=== PATIENT | male | born 1940 | race Caucasian/White ===

== ENCOUNTER → 2016-12-10 09:13 | Outpatient (CLI) | payer MEDICARE, OTHER ==
[2013-08-02 18:16] VITALS: BMI 27.5
[~2016-12-10 09:13] MED LIST: ADVAIR 250/501 DISK INH; FLOMAX0.4 MG PO; PLAVIX75 MG PO; PRAVACHOL40 MG PO; PROVENTIL HFA6.7 GM
[2016-12-10 09:46] LABS: BASOPHILS 0.4 % (0.0-2.0); EOSINOPHILS 3.6 % (0-7); HEMATOCRIT 42.8 % (42.0-54.0); HEMOGLOBIN 14.4 g/dL (13.5-17.5); IMMATURE GRANULOCYTES 0.3 % (0-5); LYMPHOCYTES 22.2 % (15-50); MCH 29.3 pg (26.0-34.0); MCHC 33.6 g/dL (31.0-37.0); MEAN PLATELET VOLUME 9.5 fL (7.4-10.4); MONOCYTES 7.2 % (2-11); NEUTROPHILS 66.3 % (40-80); PLATELET COUNT 242 10x3/uL (130-400); RBC 4.92 10x6/uL (4.20-6.10); RDW 13.4 % (11.5-14.5); WBC 7.4 10x3/uL (4.8-10.8)
[2016-12-10 10:23] LABS: ALBUMIN 3.9 g/dL (3.4-5.0); ALKALINE PHOSPHATASE 86 U/L (46-116); ALT (SGPT) 35 U/L (10-68); CALC OSMOLALITY 281 mosm/kg (275-300); CALCIUM 8.4 mg/dL (8.5-10.1); CARBON DIOXIDE 27.3 mmol/L (21.0-32.0); CHLORIDE - SERUM 102 mmol/L (98-107); CHOL - HDL RATIO 3.4 ratio (2.3-4.9); CHOLESTEROL, TOTAL 137 mg/dL (0-200); GLUCOSE 114 mg/dL (74-106); HDL CHOLESTEROL 40 mg/dL (32-96); LDL CHOLESTEROL 78 mg/dL (0-100); POTASSIUM - SERUM 3.7 mmol/L (3.5-5.1); PROTEIN - SERUM 7.1 g/dL (6.4-8.2); SODIUM 139 mmol/L (136-145); THYROID STIMULATING HORMONE 1.39 uIU/mL (0.36-3.74); TRIGLYCERIDE 95 mg/dL (30-200); UREA NITROGEN 20 mg/dL (7-18); eGFR NON AFRICAN AMERICAN 77 mL/min (90-120)
[2016-12-10 10:26] LABS: SCREENING PSA (YEARLY) 0.89 ng/mL (0.00-4.00)
== END | disposition home or self-care (01) ==
LOC: D.LAB 09:13
PROVIDERS: Family Medicine
DX: I25.10 Atherosclerotic heart disease of native coronary artery without angina pectoris (principal); Z12.5 Encounter for screening for malignant neoplasm of prostate; R52 Pain, unspecified; J44.9 Chronic obstructive pulmonary disease, unspecified; Z00.00 Encounter for general adult medical examination without abnormal findings

== ENCOUNTER → 2017-03-17 08:20 | Outpatient (CLI) | payer MEDICARE, OTHER ==
[2013-08-02 18:16] VITALS: BMI 27.5
== END | disposition home or self-care (01) ==
LOC: D.RAD 08:00
DX: R05 Cough (principal); J43.9 Emphysema, unspecified; J18.9 Pneumonia, unspecified organism

== ENCOUNTER → 2017-03-26 12:55 | Outpatient (CLI) | payer MEDICARE, OTHER ==
[2013-08-02 18:16] VITALS: BMI 27.5
== END | disposition home or self-care (01) ==
LOC: CANPRECLI → D.LABREF 12:55
DX: J98.11 Atelectasis (principal)

== ENCOUNTER → 2017-03-26 19:59 | Outpatient (CLI) | payer MEDICARE, OTHER ==
[2013-08-02 18:16] VITALS: BMI 27.5
[2017-03-28 08:16] LABS: IMMUNOGLOBULIN E 110 IU/mL (0-100)
[2017-03-30 11:12] LABS: IMMUNOGLOBULIN A 154 mg/dL (61-437); IMMUNOGLOBULIN G 1265 mg/dL (700-1600); IMMUNOGLOBULIN M 206 mg/dL (15-143)
== END | disposition home or self-care (01) ==
LOC: D.LABREF 19:59
PROVIDERS: Internal Medicine Pulmonary Disease
DX: J98.11 Atelectasis (principal)

== ENCOUNTER → 2017-04-17 08:19 | Outpatient (CLI) | payer MEDICARE, OTHER ==
[2013-08-02 18:16] VITALS: BMI 27.5
== END | disposition home or self-care (01) ==
LOC: D.RT 08:19
DX: R04.2 Hemoptysis (principal)

== ENCOUNTER → 2017-11-02 14:07 | Outpatient (CLI) | payer MEDICARE, OTHER ==
[2013-08-02 18:16] VITALS: BMI 27.5
== END | disposition home or self-care (01) ==
LOC: D.CT 14:07
DX: R91.8 Other nonspecific abnormal finding of lung field (principal)

== ENCOUNTER → 2018-03-02 09:02 | Outpatient (CLI) | payer MEDICARE, OTHER ==
[2013-08-02 18:16] VITALS: BMI 27.5
[2018-03-02 09:40] LABS: BASOPHILS 0.3 % (0-2); EOSINOPHILS 1.6 % (0-7); HEMATOCRIT 44.1 % (42.0-54.0); HEMOGLOBIN 15.2 g/dL (13.5-17.5); IMMATURE GRANULOCYTES 0.2 % (0-5); LYMPHOCYTES 16.2 % (15-50); MCHC 34.5 g/dL (31.0-37.0); MCV 87.2 fL (80.0-100.0); MEAN PLATELET VOLUME 9.4 fL (7.4-10.4); MONOCYTES 7.2 % (2-11); NEUTROPHILS 74.5 % (40-80); PLATELET COUNT 213 10x3/uL (130-400); RBC 5.06 10x6/uL (4.20-6.10); RDW 13.2 % (11.5-14.5); WBC 9.4 10x3/uL (4.8-10.8)
[2018-03-02 10:19] LABS: ALBUMIN 3.9 g/dL (3.4-5.0); ANION GAP 11.9 mmol/L (8-16); BILIRUBIN - TOTAL 0.42 mg/dL (0.2-1.3); C-REACTIVE PROTEIN 1.7 mg/dL (0.0-0.9); CALCIUM 8.7 mg/dL (8.5-10.1); CARBON DIOXIDE 27.9 mmol/L (21.0-32.0); CHOL - HDL RATIO 4.2 ratio (2.3-4.9); CREATININE - SERUM 1.1 mg/dL (0.6-1.3); LDL-HDL RATIO 2.3 ratio (1.5-3.5); MAGNESIUM - SERUM 1.9 mg/dL (1.8-2.4); POTASSIUM - SERUM 3.8 mmol/L (3.5-5.1); PROTEIN - SERUM 7.8 g/dL (6.4-8.2); THYROID STIMULATING HORMONE 1.74 uIU/mL (0.36-3.74)
[2018-03-02 10:45] LABS: ERYTHROCYTE SEDIMENTATION RATE 5 mm/hr (0-20)
== END | disposition home or self-care (01) ==
LOC: D.LAB 09:02
PROVIDERS: Family Medicine
DX: E11.9 Type 2 diabetes mellitus without complications (principal); I25.10 Atherosclerotic heart disease of native coronary artery without angina pectoris; G62.9 Polyneuropathy, unspecified; N40.0 Benign prostatic hyperplasia without lower urinary tract symptoms; R25.2 Cramp and spasm; I10 Essential (primary) hypertension; J44.9 Chronic obstructive pulmonary disease, unspecified; K21.9 Gastro-esophageal reflux disease without esophagitis

== ENCOUNTER → 2018-05-31 13:26 | Outpatient (CLI) | payer MEDICARE, OTHER ==
[2013-08-02 18:16] VITALS: BMI 27.5
== END | disposition home or self-care (01) ==
LOC: D.CT 13:26
DX: R91.8 Other nonspecific abnormal finding of lung field (principal)

== ENCOUNTER → 2018-12-07 09:35 | Outpatient (CLI) | payer MEDICARE, OTHER ==
[2013-08-02 18:16] VITALS: BMI 27.5
== END | disposition home or self-care (01) ==
LOC: D.CT 09:35
DX: R91.8 Other nonspecific abnormal finding of lung field (principal)

== ENCOUNTER → 2019-03-23 12:16 | Outpatient (CLI) | payer MEDICARE, OTHER ==
[2013-08-02 18:16] VITALS: BMI 27.5
[2019-03-23 13:13] LABS: HEMATOCRIT 45.1 % (42.0-54.0); HEMOGLOBIN 15.8 g/dL (13.5-17.5); MCH 30.2 pg (26.0-34.0); MCV 86.2 fL (80.0-100.0); MEAN PLATELET VOLUME 9.8 fL (7.4-10.4); PLATELET COUNT 232 10x3/uL (130-400); RBC 5.23 10x6/uL (4.20-6.10); RDW 13.2 % (11.5-14.5); WBC 8.1 10x3/uL (4.8-10.8)
[2019-03-23 13:35] LABS: ALBUMIN 4.3 g/dL (3.4-5.0); ANION GAP 14.6 mmol/L (8-16); BILIRUBIN - TOTAL 0.61 mg/dL (0.2-1.3); CALCIUM 9.4 mg/dL (8.5-10.1); CARBON DIOXIDE 27.2 mmol/L (21.0-32.0); CHOL - HDL RATIO 3.9 ratio (2.3-4.9); CREATININE - SERUM 1.2 mg/dL (0.6-1.3); LDL-HDL RATIO 2.3 ratio (1.5-3.5); POTASSIUM - SERUM 3.8 mmol/L (3.5-5.1); PROTEIN - SERUM 8.6 g/dL (6.4-8.2); SCREENING PSA (YEARLY) 1.28 ng/mL (0.00-4.00); THYROID STIMULATING HORMONE 1.75 uIU/mL (0.36-3.74)
[2019-03-23 14:15] LABS: LYMPHOCYTES 29 % (15-50); MONOCYTES 10 % (2-11); NEUTROPHILS 61 % (40-80); PLATELET ESTIMATE NORMAL
== END | disposition home or self-care (01) ==
LOC: D.LAB 12:16
PROVIDERS: ATTEND Family Medicine
DX: I25.10 Atherosclerotic heart disease of native coronary artery without angina pectoris (principal); I10 Essential (primary) hypertension; J45.909 Unspecified asthma, uncomplicated; Z00.00 Encounter for general adult medical examination without abnormal findings

== ENCOUNTER → 2019-08-23 10:12 | Outpatient (CLI) | payer MEDICARE, OTHER ==
[2013-08-02 18:16] VITALS: BMI 27.5
== END | disposition home or self-care (01) ==
LOC: D.CT 10:12
PROVIDERS: ATTEND Internal Medicine Pulmonary Disease
DX: R91.8 Other nonspecific abnormal finding of lung field (principal)